=== PATIENT | female | born 1985 | race African-American/Black ===

== ENCOUNTER 2020-02-19 06:09 | Emergency (ER) | payer MEDICAID ==
[~2020-02-19] VITALS: Ht 167.6 cm; Wt 72.6 kg
[2020-02-19 06:10] VITALS: Ht 167.6 cm; Wt 72.6 kg
[2020-02-19 08:22] VITALS: BP 128/79
[2020-02-19 09:45] LABS: BASOPHIL % 0.3 % (0.2-1.3); PLATELET COUNT 258 x10^3mcL (179-408); RED CELL DISTRIBUTION WIDTH 13.3 % (12.3-17.7)
[2020-02-19 10:10] LABS: CARBON DIOXIDE 23.5 mmol/L (21-32); CHLORIDE SERUM 104 mmol/L (98-107); CREATININE SERUM 0.7 mg/dL (0.6-1.0); GFR1 > 60 mL/min; GLUCOSE SERUM 84 mg/dL (74-106); POTASSIUM SERUM 3.4 mmol/L (3.5-5.1); SODIUM SERUM 141 mmol/L (136-145)
[2020-02-19 10:14] LABS: ALBUMIN 4.4 g/dL (3.4-5.0); ALKALINE PHOSPHATASE 60 U/L (46-116); ALT/SGPT 28 U/L (14-59); AMYLASE 63 U/L (25-115); AST/SGOT 23 U/L (15-37); BILIRUBIN TOTAL 0.5 mg/dL (0.20-1.00); LIPASE 94 IU/L (73-393)
[2020-02-19 10:19] LABS: TOTAL PROTEIN, SERUM 8.3 g/dL (6.4-8.2)
== END 2020-02-19 08:22 | disposition home or self-care (01) ==
LOC: ED 06:09
PROVIDERS: Emergency Medicine
DX: F12.288 Cannabis dependence with other cannabis-induced disorder (principal); R11.2 Nausea with vomiting, unspecified
CPT/HCPCS: Q0162